=== PATIENT | female | born 1985 | race African-American/Black ===

== ENCOUNTER 2016-06-21 16:01 | Emergency (ER) | payer MEDICAID, OTHER ==
[~2016-06-21] VITALS: Ht 167.6 cm; Wt 61.5 kg
[~2016-06-21 16:01] MED LIST: SULF1SOL4 OD; Z.0.NO CURRENT MEDS
[2016-06-21 16:03] VITALS: BP 118/57; PULSE 85; RESP 15; TEMP 98; O2SAT 99
[2016-06-21] MEDS ORDERED: SODIUM CHLOR 0.9% 1000 ML INJ 1,000 ML IV ONE (17:34)
[2016-06-21] MEDS ORDERED: SODIUM CHLORIDE 0.9% FLUSH 10 ML FLUSH IVF PRN (17:45)
--- NOTE | 2016-06-21 17:49 | PD ---
HPI Chief Complaint: Related Problem Time Seen by Provider: 17:29 Travel History International Travel<30 days: No Contact w/Intl Traveler<30days: No Traveled to known affect area: No History of Present Illness HPI Patient is a 31-year-old female who is [id number], who presents to emergency room for evaluation of lower abdominal cramping and vaginal spotting. Patient reports that she is 13 weeks , reports that for the past 5 days, she has had increased abdominal cramping. Patient reports that for the past few days she has also had some bright red vaginal spotting. She did follow-up with her real estate loan officer 2-3 weeks ago, was told that "everything looked good." Patient denies any fevers or chills. Patient reports slight nausea with no vomiting. Patient with no other complaints. PFSH Past Medical History Medical History: Denies Significant Hx Tetanus Vaccination: > 5 Years Influenza Vaccination: No ?: LMP: 02/2016 : 4 Para: 2 Miscarriage: 0 : 1 Past Surgical History Surgical History: No Previous Surgery Social History Alcohol Use: No Tobacco Use: Yes (/2 PPD) Substance Use: No Allergies-Medications (Allergen,Severity, Reaction): Coded Allergies: No Known Allergies (Verified , 06/21/16) Reported Meds & Prescriptions Reported Meds & Active Scripts Active No Active Prescriptions or Reported Medications Review of Systems General / Constitutional: No: Fever Eyes: No: Visual changes HENT: No: Headaches Cardiovascular: No: Chest Pain or Discomfort Respiratory: No: Shortness of Breath Gastrointestinal: Positive: Nausea, No: Vomiting, Abdominal Pain Genitourinary: Positive: Vaginal Bleeding, No: Dysuria Musculoskeletal: No: Pain Skin: No Rash Neurologic: No: Weakness Psychiatric: No: Depression Endocrine: No: Polydipsia Hematologic/Lymphatic: No: Easy Bruising Physical Exam Narrative GENERAL: No acute distress, nontoxic SKIN: Focused skin assessment warm/dry. HEAD: Atraumatic. Normocephalic. EYES: Pupils equal and round. No scleral icterus. No injection or drainage. ENT: No nasal bleeding or discharge. Mucous membranes pink and moist. NECK: Trachea midline. No JVD. CARDIOVASCULAR: Regular rate and rhythm. No murmur appreciated. RESPIRATORY: No accessory muscle use. Clear to auscultation. Breath sounds equal bilaterally. GASTROINTESTINAL: Abdomen soft, non-tender, nondistended. PELVIC: exam performed with RN at bedside, no cmt or adnexal tenderness, mild white thick discharge MUSCULOSKELETAL: No obvious deformities. No clubbing. No cyanosis. No edema. NEUROLOGICAL: Awake and alert. Normal speech. PSYCHIATRIC: Appropriate mood and affect; insight and judgment normal. Data Data Last Documented VS Vital Signs Date Time Temp Pulse Resp B/P Pulse Ox O2 Delivery O2 Flow Rate FiO2 06/21/16 16:25 17 06/21/16 16:03 98.0 85 118/57 99 Orders Beta Hcg (Quant/Titer) (06/21/16 17:34) Complete Blood Count With Diff (06/21/16 17:34) Basic Metabolic Panel (Bmp) (06/21/16 17:34) Gc And Chlamydia Pcr (06/21/16 17:34) Type And Screen (06/21/16 17:34) Wet Prep Profile (06/21/16 17:34) Urinalysis - C+S If Indicated (06/21/16 17:34) Iv Access Insert/Monitor (06/21/16 17:34) Sodium Chloride 0.9% Flush (Ns Flush) (06/21/16 17:45) Sodium Chlor 0.9% 1000 Ml Inj (Ns 1000 M (06/21/16 17:34) Ed Urine Pregnancytest Poc (06/21/16 17:34) Labs Laboratory Tests Test 06/21/16 06/21/16 17:40 17:45 White Blood Count 7.6 TH/MM3 Red Blood Count 3.88 MIL/MM3 Hemoglobin 11.7 GM/DL Hematocrit 34.7 % Mean Corpuscular Volume 89.3 FL Mean Corpuscular Hemoglobin 30.0 PG Mean Corpuscular Hemoglobin 33.6 % Concent Red Cell Distribution Width 13.3 % Platelet Count 226 TH/MM3 Mean Platelet Volume 7.4 FL Neutrophils (%) (Auto) 56.8 % Lymphocytes (%) (Auto) 32.8 % Monocytes (%) (Auto) 9.3 % Eosinophils (%) (Auto) 0.8 % Basophils (%) (Auto) 0.3 % Neutrophils # (Auto) 4.3 TH/MM3 Lymphocytes # (Auto) 2.5 TH/MM3 Monocytes # (Auto) 0.7 TH/MM3 Eosinophils # (Auto) 0.1 TH/MM3 Basophils # (Auto) 0.0 TH/MM3 CBC Comment DIFF FINAL Differential Comment Clue Cells (Wet Prep) NONE SEEN Vaginal Trichomonas (Wet Prep) NONE SEEN Vaginal Yeast (Wet Prep) NONE SEEN Sodium Level 137 MEQ/L Potassium Level 3.6 MEQ/L Chloride Level 104 MEQ/L Carbon Dioxide Level 24.6 MEQ/L Anion Gap 8 MEQ/L Blood Urea Nitrogen 7 MG/DL Creatinine 0.76 MG/DL Estimat Glomerular Filtration 107 ML/MIN Rate Random Glucose 93 MG/DL Calcium Level 8.6 MG/DL Human Chorionic Gonadotropin, [address]34[address] MIU/ML Quant Blood Type AB POSITIVE Blood Bank Comment Urine Color YELLOW Urine Turbidity HAZY Urine pH 7.0 Urine Specific Minto 1.030 Urine Protein TRACE mg/dL Urine Glucose (UA) NEG mg/dL Urine Ketones TRACE mg/dL Urine Occult Blood NEG Urine Nitrite NEG Urine Bilirubin NEG Urine Urobilinogen 2.0 MG/DL Urine Leukocyte Esterase NEG Urine RBC 1 /hpf Urine WBC 2 /hpf Urine Squamous Epithelial 2 /hpf Cells Urine Amorphous Sediment FEW Urine Mucus FEW /lpf Microscopic Urinalysis Comment CULT NOT INDICATED MDM Medical Decision Making Medical Screen Exam Complete: Yes Emergency Medical Condition: Yes Interpretation(s) Vital Signs Date Time Temp Pulse Resp B/P Pulse Ox O2 Delivery O2 Flow Rate FiO2 06/21/16 16:25 17 06/21/16 16:03 98.0 85 15 118/57 99 Differential Diagnosis Spontaneous miscarriage versus threatened miscarriage versus inevitable miscarriage, early vaginal bleeding, ectopic , UTI, cervicitis Narrative Course Patient is a 31-year-old female who presents to emergency room with complaints of irregular vaginal spotting and abdominal cramping. Patient is 13 weeks , reports onset of symptoms the past 5 days. Patient here for evaluation of irregular vaginal spotting and cramping. Patient reports that she has had 2 full term babies born via vaginal delivery, reports that she has never had irregular spotting or cramping during these pregnancies. Reports no complications from her prior pregnancies. Patient admits to one elective , no history of miscarriages in the past. Labs as well as hCG Quant. Bedside US performed, patient does have positive FHT. CBC & BMP Diagram 06/21/16 17:40 Laboratory Tests Test 06/21/16 06/21/16 17:40 17:45 White Blood Count 7.6 TH/MM3 (4.0-11.0) Red Blood Count 3.88 MIL/MM3 (4.00-5.30) Hemoglobin 11.7 GM/DL (11.6-15.3) Hematocrit 34.7 % (35.0-46.0) Mean Corpuscular Volume 89.3 FL (80.0-100.0) Mean Corpuscular Hemoglobin 30.0 PG (27.0-34.0) Mean Corpuscular Hemoglobin 33.6 % Concent (32.0-36.0) Red Cell Distribution Width 13.3 % (11.6-17.2) Platelet Count 226 TH/MM3 (150-450) Mean Platelet Volume 7.4 FL (7.0-11.0) Neutrophils (%) (Auto) 56.8 % (16.0-70.0) Lymphocytes (%) (Auto) 32.8 % (9.0-44.0) Monocytes (%) (Auto) 9.3 % (0.0-8.0) Eosinophils (%) (Auto) 0.8 % (0.0-4.0) Basophils (%) (Auto) 0.3 % (0.0-2.0) Neutrophils # (Auto) 4.3 TH/MM3 (1.8-7.7) Lymphocytes # (Auto) 2.5 TH/MM3 (1.0-4.8) Monocytes # (Auto) 0.7 TH/MM3 (0-0.9) Eosinophils # (Auto) 0.1 TH/MM3 (0-0.4) Basophils # (Auto) 0.0 TH/MM3 (0-0.2) CBC Comment DIFF FINAL Differential Comment Clue Cells (Wet Prep) NONE SEEN (NONE) Vaginal Trichomonas (Wet Prep) NONE SEEN (NONE) Vaginal Yeast (Wet Prep) NONE SEEN (NONE) Sodium Level 137 MEQ/L (136-145) Potassium Level 3.6 MEQ/L (3.5-5.1) Chloride Level 104 MEQ/L (98-107) Carbon Dioxide Level 24.6 MEQ/L (21.0-32.0) Anion Gap 8 MEQ/L (5-15) Blood Urea Nitrogen 7 MG/DL (7-18) Creatinine 0.76 MG/DL (0.50-1.00) Estimat Glomerular Filtration 107 ML/MIN Rate (>89) Random Glucose 93 MG/DL (74-106) Calcium Level 8.6 MG/DL (8.5-10.1) Human Chorionic Gonadotropin, 70253 MIU/ML Quant (0-5) Blood Type AB POSITIVE Blood Bank Comment Urine Color YELLOW (YELLW/STRAW) Urine Turbidity HAZY (CLEAR) Urine pH 7.0 (5.0-8.5) Urine Specific Minto 1.030 (1.002-1.035) Urine Protein TRACE mg/dL (NEG-TRACE) Urine Glucose (UA) NEG mg/dL (NEG) Urine Ketones TRACE mg/dL (NEG) Urine Occult Blood NEG (NEG) Urine Nitrite NEG (NEG) Urine Bilirubin NEG (NEG) Urine Urobilinogen 2.0 MG/DL (LESS THAN 2.0) Urine Leukocyte Esterase NEG (NEG) Urine RBC 1 /hpf (0-3) Urine WBC 2 /hpf (0-5) Urine Squamous Epithelial 2 /hpf (0-5) Cells Urine Amorphous Sediment FEW Urine Mucus FEW /lpf (OCC) Microscopic Urinalysis Comment CULT NOT INDICATED hgb 11.7 hcg quant 79,074 blood type AB positive She feeling better at this time. I reviewed all labs and studies with patient in detail. Discussed with patient need to follow-up with TIN POT OPERATOR as soon as possible. Discussed that she will need to have pelvic rest until she is seen and cleared by her coil taper. Patient given instructions for threatened miscarriage. Patient will return to emergency room if symptoms return or persist or worsen. Patient thankful for care. Diagnosis Primary Impression: Threatened Patient Instructions: General Instructions Additional Instructions: Please provide patient with a copy of her lab work at discharge Please follow up with your TIN POT OPERATOR as soon as possible Pelvic rest until you're seen and cleared by your OB real estate loan officer Please follow-up with cultures from today Please return to ER if symptoms return or worsen Scripts No Active Prescriptions or Reported Meds Disposition: 01 DISCHARGE HOME Condition: Stable Rachel Sotelo DO Jun 21, 2016 17:49
[2016-06-21 18:25] LABS: BLOOD, URINE NEG (NEG); COMMENT (UR) CULT NOT INDICATED; CULTURE IF INDICATED CULT NOT INDICATED; GLUCOSE,URINE NEG (NEG); KETONE, URINE TRACE mg/dL (NEG); MUCUS URINE FEW /lpf (OCC); NITRITE,URINE NEG (NEG); SQUAMOUS EPITHELIAL CELL URINE 2 /hpf (0-5); URINE COLOR YELLOW (YELLW/STRAW)
[2016-06-21 18:25] LABS: AUTOMATED NEUTROPHIL # 4.3 TH/MM3 (1.8-7.7); BASOPHIL % 0.3 % (0.0-2.0); EOSINOPHIL # 0.1 TH/MM3 (0-0.4); EOSINOPHIL % 0.8 % (0.0-4.0); HEMATOCRIT 34.7 % (35.0-46.0); HEMO FLAGS DIFF FINAL; LYMPH % 32.8 % (9.0-44.0); LYMPHOCYTE # 2.5 TH/MM3 (1.0-4.8); MEAN CELL VOLUME 89.3 FL (80.0-100.0); MEAN CORPUSCULAR HGB CONC 33.6 % (32.0-36.0); MONO % 9.3 % (0.0-8.0); NEUT % 56.8 % (16.0-70.0); PLATELET COUNT 226 TH/MM3 (150-450); RED BLOOD COUNT 3.88 MIL/MM3 (4.00-5.30); RED CELL DISTRIBUTION WIDTH 13.3 % (11.6-17.2); WHITE BLOOD COUNT 7.6 TH/MM3 (4.0-11.0)
[2016-06-21 18:34] LABS: BICARBONATE 24.6 MEQ/L (21.0-32.0); POTASSIUM 3.6 MEQ/L (3.5-5.1)
[2016-06-21 22:31] LABS: CHLAMYDIA PCR NOT DETECTED (NOT DETECT); NEISSERIA PCR NOT DETECTED (NOT DETECT)
[2016-08-10] MEDS ORDERED: TERC.4%V VAGINAL (09:46)
== END 2016-06-21 19:45 | disposition home or self-care (01) ==
LOC: NEPD 16:01
DX: O20.0 Threatened abortion (principal); O26.851 Spotting complicating pregnancy, first trimester; R10.30 Lower abdominal pain, unspecified; F17.200 Nicotine dependence, unspecified, uncomplicated; Z3A.13 13 weeks gestation of pregnancy
CPT/HCPCS: 80048; 81001; 84702; 84703; 85025; 86850; 86900; 86901; 87210; 87491; 87591; 96360; 99284; J7030

== ENCOUNTER → 2016-07-07 | Outpatient (CLI) | payer OTHER ==
[~2016-07-07] MED LIST changes: -SULF1SOL4 OD; +TERC.4%V VAGINAL; -Z.0.NO CURRENT MEDS
== END ==
LOC: HPND 10:11
PROVIDERS: ATTEND Family Medicine
DX: O26.842 Uterine size-date discrepancy, second trimester (principal)
CPT/HCPCS: 76805

== ENCOUNTER → 2016-07-13 | Outpatient (CLI) | payer OTHER | LOC: HPND 07:29 | PROVIDERS: ATTEND Family Medicine | DX: O35.1XX0 Maternal care for (suspected) chromosomal abnormality in fetus, not applicable or unspecified (principal); Z72.0 Tobacco use; Z3A.00 Weeks of gestation of pregnancy not specified | CPT/HCPCS: 76811; 76817 ==

== ENCOUNTER → 2016-08-11 | Outpatient (CLI) | payer OTHER | LOC: HPND 08:53 | PROVIDERS: ATTEND Family Medicine | DX: O35.1XX0 Maternal care for (suspected) chromosomal abnormality in fetus, not applicable or unspecified (principal); O44.02 Complete placenta previa NOS or without hemorrhage, second trimester; O43.892 Other placental disorders, second trimester; Z3A.20 20 weeks gestation of pregnancy | CPT/HCPCS: 76816 ==

== ENCOUNTER → 2016-09-08 | Outpatient (CLI) | payer OTHER ==
[~2016-09-08] MED LIST changes: +DOXY10TA PO; +PYRI25TA2 PO
== END ==
LOC: HPND 08:28
PROVIDERS: ATTEND Family Medicine
DX: O35.8XX0 Maternal care for other (suspected) fetal abnormality and damage, not applicable or unspecified (principal)
CPT/HCPCS: 76816; 76825; 76827; 93325

== ENCOUNTER 2016-10-03 08:34 | Emergency (ER) | payer MEDICAID, OTHER ==
[~2016-10-03] VITALS: Ht 167.6 cm; Wt 68.5 kg
[~2016-10-03 08:34] MED LIST changes: +CLOTCRE TOPICAL
--- NOTE | 2016-10-03 09:06 | PD ---
HPI Chief Complaint Vaginal Bleeding Date Seen: Oct 03, 2016 Travel History International Travel<30 Days: No Contact w/Intl Traveler<30Days: No History of Present Illness HPI Ms. Murillo is a 31 y/o F presenting at 27/04 with vaginal bleeding. She states that around 0500 this morning after intercourse she began to have vaginal bleeding. She describes the bleeding as heavy, however it does not soak a pad and only covers her panty liner. She is without pain currently and previous US shows anterior placental placement. She denies any dizziness, headaches, or syncope. She endorses no family history of bleeding disorders. Otherwise she has no complaints and denies any fevers, chills, SOB, chest pain, NVD, ABD pain, or calf tenderness. She has recently been treated for a yeast infection with intravaginal terconazole, but states she has completed her medication. Her only complication during this has been gastroschisis of her found on US. 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 Prov:Nereyda Hernandez MD R2 09/28/16 Terconazole Vaginal Cream (Terazol 7 Vaginal Cream)0.4 % Cream1 Appl VAGINAL HS #45 GM Ref 0 1 applicatorful intravaginally x 7 nights Prov:Nereyda Hernandez MD R2 09/28/16 Pyridoxine 25 Mg Tab25 Mg PO Q8HR PRN (NAUSEA) #28 TAB Ref 0 Prov:Quynh Dubois MD R2 09/16/16 Doxylamine-Pyridoxine (Diclegis)10-10 Mg Tab2 Tab PO HS #28 TAB Prov:Quynh Dubois MD R2 09/16/16 Discontinued Scripts Terconazole Vaginal Cream 0.4 % Cream1 Appl VAGINAL HS #45 GM Ref 0 For seven days Prov:Nereyda Hernandez MD R2 09/28/16 Terconazole Vaginal Cream (Terazol 7 Vaginal Cream)0.4 % Cream1 Appl VAGINAL HS #45 GM Ref 0 1 applicatorful intravaginally x 7 nights Prov:Quynh Dubois MD R2 09/16/16 Review of Systems General / Constitutional: No: Fever Eyes: Visual changes (Intermittent spots) HENT: No: Headaches Cardiovascular: No: Chest Pain or Discomfort Respiratory: No: Cough, Short of Breath Gastrointestinal: No: Nausea, Vomiting, Diarrhea, Abdominal Pain Genitourinary: No: Dysuria Musculoskeletal: No: Weakness Skin: No Rash Neurologic: No: Weakness Psychiatric: No: Mood Disorder Physical Exam Narrative GENERAL: Well-nourished, well-developed patient. SKIN: Warm and dry. HEAD: Normocephalic and atraumatic. EYES: No scleral icterus. No injection or drainage. ENT: No nasal drainage noted. Mucous membranes pink. Airway patent. NECK: Supple, trachea midline. No JVD. CARDIOVASCULAR: Regular rate and rhythm without murmurs, gallops, or rubs. RESPIRATORY: Breath sounds equal bilaterally. No accessory muscle use. ABDOMEN/GI: Abdomen soft, non-tender, bowel sounds present, no rebound, no guarding Gravid to 28 weeks size GENITOURINARY: Speculum: Cervix visualized with blood clot in external os. No signs of infection or purulent material. External Genitalia: intact and normal in appearance Cervix: Posterior Dilatation: Closed Effacement: None Station: -3 Membranes: Intact Contractions: Every 8 minutes on monitor, patient does not feel contractions FHT's: Category: 1 Baseline: 150s Reactive: Positive Variability: Moderate Decels: None EXTREMITIES: No cyanosis or edema. BACK: Nontender without obvious deformity. No CVA tenderness. NEUROLOGICAL: Awake and alert. Motor and sensory grossly within normal limits. Five out of 5 muscle strength in all muscle groups. Normal speech. Data Data Vital Signs Reviewed: Yes [facility] Medical Record Reviewed: Yes Plan 31 y/o at 28/2 presenting with postcoital vaginal bleeding for the last 4 hours. 1. IUP at 28 weeks -Continue routine OB care -Category 1 tracing, contractions due likely to irritation from bleeding -Terbutaline SQ given for contractions -Encourage PO hydration 2. Postcoital Bleeding -Minimal vaginal bleeding on speculum exam -1L LR bolus -Encouraged PO hydration -Previous US shows anterior placental placement, no signs of previa Patient to be discharged home after her 1L LR bolus and pending clinical course s/p terbutaline. F/U with PCP. SDW: Dr. Carver, Dr. Burr Diagnosis Diagnosis: Primary Impression: 28 weeks gestation of Additional Impression: Postcoital bleeding Disposition: DISCHARGE HOME Condition: Good Db Tan MD R2 Oct 03, 2016 09:06
[2016-10-03] MEDS ORDERED: TERBUTALINE INJ 1 MG/ML AMP SQ ONE (09:15)
[2016-10-03] MEDS ORDERED: LACTATED RINGER'S 1000 ML INJ 1,000 ML IV ONE (09:15)
[2016-10-20] MEDS ORDERED: TERC.4%V VAGINAL (12:27)
[2016-11-19] MEDS ORDERED: FLUC150T PO (15:22)
== END 2016-10-03 10:31 | disposition home or self-care (01) ==
LOC: HOBED 08:34
DX: O46.93 Antepartum hemorrhage, unspecified, third trimester (principal); Z3A.28 28 weeks gestation of pregnancy
CPT/HCPCS: 96372; 99284; J3105; J7120

== ENCOUNTER → 2016-10-06 | Outpatient (CLI) | payer MEDICAID ==
[~2016-10-06] MED LIST changes: +ECON0.052 TOPICAL; +FLUC150T PO; +IBUP-232 PO; +OXYC1TAB63 PO
== END ==
LOC: HPND 08:28
PROVIDERS: ATTEND Family Medicine
DX: O35.8XX0 Maternal care for other (suspected) fetal abnormality and damage, not applicable or unspecified (principal)
CPT/HCPCS: 76816

== ENCOUNTER 2016-10-08 15:56 | Emergency (ER) | payer MEDICAID ==
[~2016-10-08 15:56] MED LIST changes: -ECON0.052 TOPICAL; -FLUC150T PO; -IBUP-232 PO; -OXYC1TAB63 PO
--- NOTE | 2016-10-08 17:25 | PD ---
HPI Chief Complaint Contractions Vaginal bleeding Date Seen: Oct 08, 2016 Time Seen: 17:00 (Anamaria Jameson MD R1) Travel History International Travel<30 Days: No Contact w/Intl Traveler<30Days: No Known Affected Area: No (Anamaria Jameson MD) History of Present Illness HPI Patient is a 31-year-old at 29 weeks who presents to OB triage complaining of contractions and vaginal bleeding. Patient reports contractions to be regular, every two minutes. Patient states that she felt contractions earlier but since arrival to triage contractions have let up. Patient reports minimal vaginal bleeding; she describes amount as a light day of a period. She denies leakage of fluid. Positive movement. Of note, patient was recently seen in OB triage and found to have contractions every 3 minutes. She was also complaining of heavier vaginal bleeding; described bleeding as filling up a pad with blood dripping into toilet. Patient was given LR and treated with terbutaline. Patient was later discharged from triage. Also, patient is seen by MFM every 4 weeks; fetus has been found to have gastroschisis. Patient will deliver at [facility] in [place]. Para: 2 : 3 (Anamaria Jameson MD R1) History Past Medical History Medical History: Denies Significant Hx (Anamaria Jameson MD) Obstetric History Obstetric History G1: 42 weeks; vaginal delivery; no complications during or delivery G2: 42 weeks; vaginal delivery; no complications during or delivery G3: current ; has received regular care with Dr. Dubois (Anamaria Jameson MD) Past Surgical History Surgical History: No Previous Surgery (Anamaria Jameson MD) Family History Family History: Negative (Anamaria Jameson MD) Social History Alcohol Use: No Tobacco Use: No Substance Abuse: No (Anamaria Jameson MD) Allergies-Medications (Allergen,Severity, Reaction): Coded Allergies: No Known Allergies (Verified , 10/03/16) Home Meds Active Scripts Clotrimazole-Betamethasone Topical 1-0.05% Cream1 Applic TOPICAL BID #45 GM Ref 0 APPLY EXTERNALLY ONLY. Prov:Anamaria Jameson MD 10/08/16 Terconazole Vaginal Cream (Terazol 7 Vaginal Cream)0.4 % Cream1 Appl VAGINAL HS #45 GM Ref 0 1 applicatorful intravaginally x 7 nights Prov:Nereyda Hernandez MD R2 09/28/16 Pyridoxine 25 Mg Tab25 Mg PO Q8HR PRN (NAUSEA) #28 TAB Ref 0 Prov:Quynh Dubois MD R2 09/16/16 Doxylamine-Pyridoxine (Diclegis)10-10 Mg Tab2 Tab PO HS #28 TAB Prov:Quynh Dubois MD R2 09/16/16 Discontinued Scripts Clotrimazole-Betamethasone Topical 1-0.05% Cream1 Applic TOPICAL BID #45 GM Ref 0 APPLY EXTERNALLY ONLY. Prov:Nereyda Hernandez MD R2 09/28/16 Review of Systems General / Constitutional: Weight Gain, No: Fever, Chills, Other Eyes: No: Diploplia, Blurred Vision, Visual changes, Pain, Photophobia HENT: No: Headaches, Vertigo, Lightheadedness Cardiovascular: No: Irregular Rhythm, Chest Pain or Discomfort, Palpitations, Tachycardia, Syncope, Varicosities, Edema, Cyanosis Respiratory: No: Cough, Short of Breath, Other Gastrointestinal: Abdominal Pain, No: Nausea, Vomiting, Diarrhea, Constipation Genitourinary: Vaginal Bleeding, No: Urgency, Frequency, Hematuria Musculoskeletal: No: Limited ROM, Weakness, Cramping, Edema, Pain Skin: No Rash, No Itching, No Dryness, No Lumps, No Change in Pigmentation, No Change in Nails, No Alopecia, No Lesions Neurologic: No: Weakness, Dizziness, Syncope, Focal Abnormalities, Coordination Problem, Headache, Slurred Speech, Seizures Psychiatric: No: Depression, Suicidal Ideations, Homicidal Ideation Endocrine: No: Heat Intolerance, Cold Intolerance, Polydipsia, Polyuria, Other (Anamaria Jameson MD R1) Physical Exam Blood pressure 123/65, heart rate 90, respiratory rate 20, temperature 98.1 Narrative GENERAL: Well-nourished, well-developed patient. SKIN: Warm and dry. HEAD: Normocephalic and atraumatic. EYES: No scleral icterus. No injection or drainage. ENT: No nasal drainage noted. Mucous membranes pink. Airway patent. NECK: Supple, trachea midline. No JVD. CARDIOVASCULAR: Regular rate and rhythm without murmurs, gallops, or rubs. RESPIRATORY: Breath sounds equal bilaterally. No accessory muscle use. ABDOMEN/GI: Abdomen soft, non-tender, bowel sounds present, no rebound, no guarding Gravid to 29 weeks size GENITOURINARY: External Genitalia: intact and normal in appearance Vaginal Canal: No erythema or source of bleeding identified; vaginal wall closing in during exam; white discharge noted. Dilatation: Closed Effacement: Thick Station: High Membranes: Intact Uterine Contractions: none FHT's: Category: 1 Baseline: 130 Reactive: + Variability: Moderate Decels: None EXTREMITIES: No cyanosis or edema. BACK: Nontender without obvious deformity. No CVA tenderness. NEUROLOGICAL: Awake and alert. Motor and sensory grossly within normal limits. Five out of 5 muscle strength in all muscle groups. Normal speech. (Anamaria Jameson MD R1) Data Data Vital Signs Reviewed: Yes (Anamaria Jameson MD R1) MDM Plan Patient is a 31-year-old at 29 weeks who presents to OB triage complaining of contractions and vaginal bleeding. 1. Pre-Term Labor * PO Hydration * Continue to monitor for FHR and contractions * If contractions noted, start LR IV, terbutaline and consider Fentanyl. 2. Vaginal Bleeding * Most likely postcoital bleeding - bleeding improving since Tuesday per patient. * Speculum exam to locate source of bleeding - no bleeding detected; no source of bleeding detected. 3. Vaginal Infection * Suspected yeast infection based on appearance. * Speculum exam. * Ordered G+C, wet prep and ONUR - pending. * Treat if evidence of infection. Seen and discussed with Dr. Daniels and Dr. Pimentel. (Anamaria Jameson MD R1) Attending Attestation Patient seen, examined, and discussed with resident team. I agree with assessment and management as documented and discussed with me. Pt presented initially with contractions, which pt reports resolved upon arrival. Exam reassuring, as cervix closed, thick, and high. No contractions seen on monitor; Category 1 strip. Vaginal discharge seen - suspect yeast based on exam and ONUR. Rx for clotrimazole. Discharge home with new rx as above. (Michelle Daniels MD) Diagnosis Diagnosis: Primary Impression: contractions Additional Impressions: Postcoital bleeding 29 weeks gestation of Disposition: DISCHARGE HOME Condition: Good Scripts Clotrimazole-Betamethasone Topical 1-0.05% Cream1 Applic TOPICAL BID #45 GM Ref 0 APPLY EXTERNALLY ONLY. Prov:Anamaria Jameson MD R1 10/08/16 Anamaria Jameson MD R1 Oct 08, 2016 17:25 Michelle Daniels MD Oct 11, 2016 08:38
[2016-10-08] MEDS ORDERED: ECON0.052 TOPICAL (18:30)
[2016-10-08] MEDS ORDERED: CLOTCRE TOPICAL (19:08)
[2016-10-08 19:23] LABS: CHLAMYDIA PCR NOT DETECTED (NOT DETECT); NEISSERIA PCR NOT DETECTED (NOT DETECT)
[2016-10-20] MEDS ORDERED: TERC.4%V VAGINAL (12:27)
[2016-11-19] MEDS ORDERED: FLUC150T PO (15:22)
== END 2016-10-08 19:23 | disposition home or self-care (01) ==
LOC: HOBED 15:56
DX: O47.03 False labor before 37 completed weeks of gestation, third trimester (principal); O46.8X3 Other antepartum hemorrhage, third trimester; Z3A.29 29 weeks gestation of pregnancy
CPT/HCPCS: 84112; 87210; 87220; 87491; 87591; 99284

== ENCOUNTER → 2016-11-03 | Outpatient (CLI) | payer MEDICAID ==
[~2016-11-03] MED LIST changes: +FLUC150T PO; +IBUP-232 PO; +OXYC1TAB63 PO
--- NOTE | 2016-11-03 21:47 | HHI.FPPN ---
Addendum to progress note ADDENDUM Reason for addendum: Additonal documentation Additional information Consult for Reyna Murillo MR [id number] Maternal Hx: 31 y/o BF, 3 P2 at 30 weeks gestation. 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 Has been following with OB Diagnostics and MFM at [place]. Already had a consult with Peds Surgery at [facility] to discuss possible closure procedures. Is awaiting referral to [facility] to be arranged. Other than a paternal aunt with T21 family history is negative for genetic or inherited conditions. Previous children are described as healthy. She smokes less than 1/2 pack of cigarettes daily, no alcohol use, per MFM note she uses occasional Marijuana. Maternal Meds: vitamins Maternal Management: Following growth, [facility] referral pending, already seen by Peds Surgery at [place]. She is to start weekly testing at 32 weeks. Plan is for delivery at [place] unless emergent conditions prompt delivery at [place]. Discussion: Nurse practitioner met with mother regarding Gastroschisis. We discussed the defect itself, possible closure procedures, need for shelter IV nutrition, most likely with PICC line. Mom was encouraged to pump/breast feed as these babies due best with breast milk. Discussed the possible feeding intolerance/ issues that can result from Gastroschisis. Discussed length of hospital stay for different closure procedures, and the possibility of prolonged hospitalization due to feeding and nutritional challenges. Discussed location of [facility] and the Level IV NICU. Discussed services such as , Handbag Frames Inspector, and [facility] (including background screening and small fee to stay). It was explained to mother what to expect from the time of delivery to admission to the NICU - including the size of NICU team and use of saline gauze/bowel bag. Reviewed need for Replogle Tube for gastric decompression and need for immediate IV access. Discussed visitation in NICU. Mother intends to breast feed and will begin pumping shortly after delivery. Mother is not opposed to providing formula should the need arise, but understands that breast milk is preferred. It was explained to mother that the may attempt to breast feed once clinically stable. Mother verbalized understanding of information provided and asked appropriate questions. Greater than 50% of the consultation time was spent face to face with the patient. We will continue to follow progress with MFM and OB Diagnostics. Will be glad to meet with mother at any time to address her questions or concerns. BUCKY JUAN Nov 03, 2016 21:47
== END ==
LOC: HPND 08:14
PROVIDERS: ATTEND Family Medicine
DX: O35.1XX0 Maternal care for (suspected) chromosomal abnormality in fetus, not applicable or unspecified (principal); O43.192 Other malformation of placenta, second trimester; Z3A.00 Weeks of gestation of pregnancy not specified
CPT/HCPCS: 76816; 76818

== ENCOUNTER 2016-11-26 20:53 | Inpatient (IN) | payer MEDICAID ==
[2016-11-26] VITALS (21 sets, daily range): BP systolic 87–150; BP diastolic 60–99; PULSE 69–112; RESP 18; TEMP 97.5
[~2016-11-26 20:53] MED LIST changes: +DIPHTH/TETANUS/ACEL PERTUSSIS (BOOSTER) 0.5 ML VIAL/PFS IM ONE; -IBUP-232 PO; +MEASLES, MUMPS, RUBELLA VACCINE 0.5 ML VIAL SQ ONE; -OXYC1TAB63 PO
[2016-11-26] MEDS ORDERED: TERBUTALINE INJ 1 MG/ML AMP ONE (21:25)
[2016-11-26] MEDS ORDERED: LACTATED RINGER'S 1000 ML INJ 1,000 ML IV SCH (21:28)
[2016-11-26] MEDS ORDERED: LACTATED RINGER'S 1000 ML INJ 1,000 ML IV PRN (21:28)
--- NOTE | 2016-11-26 21:28 | HHI.HP ---
HPI Chief Complaint Water broke and eron Date Seen: Nov 26, 2016 Time Seen: 21:22 Travel History International Travel<30 Days: No Contact w/Intl Traveler<30Days: No Known Affected Area: No History of Present Illness HPI Patient is 31-year-old black female 36 weeks [facility] presents with spontaneous ruptured membranes in active labor, she 6 cm 90 % and 0 station, she baby has known gastroschisis and a plan to deliver and [place] but she is in labor and came here, heart rate tracing is reactive and she is eron regularly Weeks Gestation: 36 Para: 2 : 3 History Obstetric History Obstetric History 2 vaginal deliveries And this fetus has gastroschisis Social History Alcohol Use: No Tobacco Use: No Substance Abuse: No Allergies-Medications (Allergen,Severity, Reaction): Coded Allergies: No Known Allergies (Verified , 11/19/16) Home Meds Active Scripts Fluconazole (Fluconazole) 150 Mg Tab, 150 MG PO ONCE for Infection, #1 TAB 0 Refills Prov:Quynh Dubois MD R2 11/19/16 Terconazole Vaginal Cream (Terazol 7 Vaginal Cream) 0.4 % Cream, 1 APPL VAGINAL HS for Fungal Infection, #45 GM 0 Refills 1 applicatorful intravaginally x 7 nights Prov:Quynh Dubois MD R2 10/20/16 Clotrimazole-Betamethasone Topical (Clotrimazole-Betamethasone Topical) 1-0.05% Cream, 1 APPLIC TOPICAL BID for Fungal Infection, #45 GM 0 Refills APPLY EXTERNALLY ONLY. Prov:nAamaria Jameson MD R1 10/08/16 Pyridoxine (Pyridoxine) 25 Mg Tab, 25 MG PO Q8HR Y for NAUSEA, #28 TAB 0 Refills Prov:Quynh Dubois MD R2 09/16/16 Doxylamine-Pyridoxine (Diclegis) 10-10 Mg Tab, 2 TAB PO HS, #28 TAB Prov:Quynh Dubois MD R2 09/16/16 Review of Systems General / Constitutional: No: Fever, Weight Gain, Chills, Other Eyes: No: Diploplia, Blurred Vision, Visual changes, Pain, Photophobia HENT: No: Headaches, Vertigo, Lightheadedness Cardiovascular: No: Irregular Rhythm, Chest Pain or Discomfort, Palpitations, Tachycardia, Syncope, Varicosities, Edema, Cyanosis Respiratory: No: Cough, Short of Breath, Other Gastrointestinal: Abdominal Pain, No: Nausea, Vomiting, Diarrhea Genitourinary: No: Decreased Urinary Output, Oliguria Musculoskeletal: No: Limited ROM, Weakness, Cramping, Edema, Pain Skin: No Rash, No Itching, No Dryness, No Lumps, No Change in Pigmentation, No Change in Nails, No Alopecia, No Lesions Neurologic: No: Weakness, Dizziness, Syncope, Focal Abnormalities, Coordination Problem, Headache, Slurred Speech, Seizures Psychiatric: No: Depression, Suicidal Ideations, Homicidal Ideation Endocrine: No: Heat Intolerance, Cold Intolerance, Polydipsia, Polyuria, Other Physical Exam Narrative GENERAL: Well-nourished, well-developed patient. SKIN: Warm and dry. HEAD: Normocephalic and atraumatic. EYES: No scleral icterus. No injection or drainage. ENT: No nasal drainage noted. Mucous membranes pink. Airway patent. NECK: Supple, trachea midline. No JVD. CARDIOVASCULAR: Regular rate and rhythm without murmurs, gallops, or rubs. RESPIRATORY: Breath sounds equal bilaterally. No accessory muscle use. BREASTS: Bilateral exam showed no masses , no retractions, no nipple discharge. ABDOMEN/GI: Abdomen soft, non-tender, bowel sounds present, no rebound, no guarding Gravid to [36-] weeks size Fundal Height: [36-] GENITOURINARY: External Genitalia: intact and normal in appearance BUS glands: [-] Cervix: [-] Dilatation: [6-] Effacement: [-90] Station: [-0] Presentation: [vtx-] Membranes: [ ruptured] Uterine Contractions: [-reg] FHT's: Category: [1-] Baseline: [-133] Reactive: [-yes] Variability: [mod-] Decels: [none-] EXTREMITIES: No cyanosis or edema. BACK: Nontender without obvious deformity. No CVA tenderness. NEUROLOGICAL: Awake and alert. Motor and sensory grossly within normal limits. Five out of 5 muscle strength in all muscle groups. Normal speech. Caprini VTE Risk Assessment Caprini VTE Risk Assessment: No/Low Risk (score <= 1) Caprini Risk Assessment Model Point Value = 1 Point Value = 2 Point Value = 3 Point Value = 5 Age 41-60 Minor surgery BMI > 25 kg/m2 Swollen legs Varicose veins or History of unexplained or recurrent spontaneous Oral contraceptives or hormone replacement Sepsis (< 1 month) Serious lung disease, including pneumonia (< 1 month) Abnormal pulmonary function Acute myocardial infarction Congestive heart failure (< 1 month) History of inflammatory bowel disease Medical patient at bed rest Age 61-74 Arthroscopic surgery Major open surgery (> 45 min) Laparoscopic surgery (> 45 min) Malignancy Confined to bed (> 72 hours) Immobilizing plaster cast Central venous access Age >= 75 History of VTE Family history of VTE Factor V Leiden Prothrombin [id number] Lupus anticoagulant Anticardiolipin antibodies Elevated serum homocysteine Heparin-induced thrombocytopenia Other congenital or acquired thrombophilia Stroke (< 1 month) Elective arthroplasty Hip, pelvis, or leg fracture Acute spinal cord injury (< 1 month) Prophylaxis Regimen Total Risk Factor Score Risk Level Prophylaxis Regimen 0-1 Low Early ambulation 2 Moderate Order ONE of the following: *Sequential Compression Device (SCD) *Heparin 5000 units SQ BID 3-4 Higher Order ONE of the following medications: *Heparin 5000 units SQ TID *Enoxaparin/Lovenox 40 mg SQ daily (WT < 150 kg, CrCl > 30 mL/min) *Enoxaparin/Lovenox 30 mg SQ daily (WT < 150 kg, CrCl > 10-29 mL/min) *Enoxaparin/Lovenox 30 mg SQ BID (WT < 150 kg, CrCl > 30 mL/min) AND/OR *Sequential Compression Device (SCD) 5 or more Highest Order ONE of the following medications: *Heparin 5000 units SQ TID (Preferred with Epidurals) *Enoxaparin/Lovenox 40 mg SQ daily (WT < 150 kg, CrCl > 30 mL/min) *Enoxaparin/Lovenox 30 mg SQ daily (WT < 150 kg, CrCl > 10-29 mL/min) *Enoxaparin/Lovenox 30 mg SQ BID (WT < 150 kg, CrCl > 30 mL/min) AND *Sequential Compression Device (SCD) Data Data Orders Orders Ob (2e) Additional Admit Info (11/26/16 21:17) Complete Blood Count With Diff (11/26/16 21:18) Type And Screen (11/26/16 21:18) Assessment/Plan Assessment and Plan Patient is 31-year-old black female 36 weeks in active labor with spontaneous rupture membranes with the baby has gastroschisis. The plan to deliver and we [facility] however started labor will deliver here and then the baby will be transferred to heart rate tracing is reactive she is eron she gross ruptured membranes. Cervix 6 cm 90% and 0 station Impression is active labor spontaneous membranes at 36 weeks patient with fetus is gastroschisis Plan is to admit and anticipate vaginal delivery with transfer of baby to [facility] Larry Carver II, MD Nov 26, 2016 21:28
[2016-11-26 21:30] LABS: AUTOMATED NEUTROPHIL # 4.3 TH/MM3 (1.8-7.7); BASOPHIL % 0.5 % (0.0-2.0); EOSINOPHIL # 0.1 TH/MM3 (0-0.4); EOSINOPHIL % 0.7 % (0.0-4.0); HEMATOCRIT 33.6 % (35.0-46.0); HEMO FLAGS DIFF FINAL; LYMPH % 34.9 % (9.0-44.0); LYMPHOCYTE # 2.8 TH/MM3 (1.0-4.8); MEAN CELL VOLUME 75.2 FL (80.0-100.0); MONO % 10.4 % (0.0-8.0); NEUT % 53.5 % (16.0-70.0); PLATELET COUNT 293 TH/MM3 (150-450); RED BLOOD COUNT 4.47 MIL/MM3 (4.00-5.30); RED CELL DISTRIBUTION WIDTH 16.4 % (11.6-17.2); WHITE BLOOD COUNT 8.1 TH/MM3 (4.0-11.0)
[2016-11-26] MEDS ORDERED: MINERAL OIL 10 ML VIAL TOPICAL PRN (21:30)
[2016-11-26] MEDS ORDERED: LIDOCAINE HCL 1% 50 ML VIAL I-DERMAL PRN (21:30)
[2016-11-26] MEDS ORDERED: PENICILLIN G POTASSIUM INJ 5,000,000 UNITS in SODIUM CHLORIDE 0.9% INJ 100 ML IV ONE (21:30)
[2016-11-26] MEDS ORDERED: CITRIC ACID-SODIUM CITRATE LIQ 30 ML UDC PO SCH (21:30)
[2016-11-26] MEDS ORDERED: SODIUM CHLORID 0.9% 500 ML INJ 500 ML IV PRN (21:30)
[2016-11-26] MEDS ORDERED: OXYTOCIN 30 UNITS-500ML PREMIX 500 ML IV ONE (21:30)
[2016-11-26] MEDS ORDERED: LIDOCAINE HCL 1% 50 ML VIAL INFIL PRN (21:30)
[2016-11-26] MEDS ORDERED: fentaNYL 2MCG-BUPIV 0.125% INJ 100 ML ONE (21:39)
[2016-11-26] MEDS ORDERED: SODIUM CHLOR 0.9% 1000 ML INJ 1,000 ML IV PRN (21:48)
[2016-11-26 22:31] LABS: BACTERIA, URINE RARE /hpf; BLOOD, URINE TRACE (NEG); COMMENT (UR) CULT NOT INDICATED; CULTURE IF INDICATED CULT NOT INDICATED; GLUCOSE,URINE NEG (NEG); KETONE, URINE NEG (NEG); NITRITE,URINE NEG (NEG); PH, URINE 7.5 (5.0-8.5); SQUAMOUS EPITHELIAL CELL URINE <1 /hpf (0-5); URINE COLOR LIGHT-YELLOW (YELLW/STRAW)
--- NOTE | 2016-11-26 22:58 | PD.OB.DELI ---
Weeks gestation: 36 Gest age assessed date: Nov 26, 2016 Gest age assessed time: 21:12 Pt started active labor?: Yes Active labor start date: Nov 26, 2016 Medical induction of labor?: No Artificial rupture of membrane: No Anesthesia: Epidural Episiotomy: Midline Vaginal Delivery: Normal Presentation: Occiput anterior Nuchal Cord: x1 Delayed cord clamping (45 sec): Yes : Male Delivery date: Nov 26, 2016 Delivery time: 22:25 One Minute : 6 Five Minute : 8 Weight: 2860 Placenta: Spontaneous delivery, Intact, 3 vessel cord Laceration: Episiotomy, 2 deg Repair: Chromic running Additional Information Spontaneous vaginal delivery at 36/0 weeks gestation. Male with gastroschisis. Midline episiotomy performed by Dr. Carver and repaired by Dr. Duobis under Dr. Carver's supervision. Intact placenta spontaneously delivered, velamentous insertion noted, sent to pathology. Quynh Dubois MD R2 Nov 26, 2016 22:58
[2016-11-26] MEDS ORDERED: SODIUM CHLORIDE 0.9% FLUSH 10 ML FLUSH IV FLUSH PRN (23:00)
[2016-11-26] MEDS ORDERED: ACETAMINOPHEN 325 MG TAB PO PRN (23:00)
[2016-11-26] MEDS ORDERED: ONDANSETRON ODT 4 MG TAB PO PRN (23:00)
[2016-11-26] MEDS ORDERED: OXYTOCIN 30 UNITS-500ML PREMIX 500 ML IV SCH (23:00)
[2016-11-26] MEDS ORDERED: oxyCODONE/ACETAMINOPHEN 5 MG/325 MG TAB PO PRN (23:00)
[2016-11-26] MEDS ORDERED: ZOLPIDEM TARTRATE 5 MG TAB PO PRN (23:00)
[2016-11-26] MEDS ORDERED: DOCUSATE SODIUM 50 MG/SENNA 8.6 MG TAB PO PRN (23:00)
[2016-11-26] MEDS ORDERED: ALUMINUM/MAGNESIUM/SIMETH 30 ML CUP PO PRN (23:00)
[2016-11-26 23:29] LABS: BLOOD GAS BASE EXCESS -0.9 mmol/L (-2-2); BLOOD GAS O2 HGB SATURATION 27 % (90-100); CORD BLOOD GAS HCO3 25 mmol/L (21-29); CORD BLOOD GAS PCO2 56 mmHG (34-78); CORD BLOOD GAS PH 7.27 (7.14-7.42); CORD BLOOD GAS PO2 19 mmHG (3.0-40.0); DRAW SITE CORD BLOOD; STAT YES
[2016-11-27 00:01] VITALS: RESP 16
[2016-11-27 00:37] VITALS: BP 123/45; PULSE 76
[2016-11-27 00:50] VITALS: RESP 18; TEMP 97.8
[2016-11-27] MEDS ORDERED: PENICILLIN G POTASSIUM INJ 2,500,000 UNITS in SODIUM CHLORIDE 0.9% INJ 100 ML IV SCH (01:00)
[2016-11-27 01:25] VITALS: BP 113/72; PULSE 79
[2016-11-27] MEDS ORDERED: NO SYSTEM NARCOTICS PRN (02:00)
[2016-11-27] MEDS ORDERED: DO NOT ADMINISTER ANTICOAGULANTS PRN (02:00)
[2016-11-27] MEDS ORDERED: fentaNYL 2MCG-BUPIV 0.125% 100 ML EPIDURAL SCH (02:00)
[2016-11-27] MEDS ORDERED: ePHEDrine/NS 25 MG/5 ML SYR IV PUSH PRN (02:00)
[2016-11-27 02:20] VITALS: BP 99/66; PULSE 66; RESP 18; TEMP 98.4
[2016-11-27] MEDS: IBUPROFEN 600 MG TAB PO PRN ×2 (07:47→13:44)
[2016-11-27] MEDS: BENZOCAINE 20% TOPICAL SPRAY 60 ML CAN TOPICAL PRN ×2 (07:51→15:37)
[2016-11-27] MEDS: WITCH HAZEL 50%/GLYCERIN 12.5% 40 PAD JAR TOPICAL PRN ×2 (07:52→15:36)
[2016-11-27] MEDS: oxyCODONE/ACETAMINOPHEN 5 MG/325 MG TAB PO PRN ×2 (07:53→13:44)
[2016-11-27 08:25] VITALS: BP 114/55; PULSE 62; RESP 18; TEMP 97.9
[2016-11-27] MEDS ORDERED: SODIUM CHLORIDE 0.9% FLUSH 10 ML FLUSH IV FLUSH SCH (09:00)
[2016-11-27] MEDS ORDERED: OXYC1TAB63 PO (10:39)
[2016-11-27] MEDS ORDERED: IBUP-232 PO (10:39)
--- NOTE | 2016-11-27 10:40 | HHI.DCPOC ---
Discharge Care Plan Diagnosis: (1) Normal vaginal delivery (2) Gastroschisis of fetus in gomez , antepartum Report Symptoms to Your Doctor -Temperature above 100.5 degrees -Redness, of incision or excessive or foul smelling drainage -Unusual pain or calf pain -Increased vaginal bleeding -Painful or difficulty urinating -Feelings of extreme sadness or anxiety after 2 weeks Goals to Promote Your Health * To prevent worsening of your condition and complications * To maintain your health at the optimal level Directions to Meet Your Goals Take your medications as prescribed Follow your dietary instruction Follow activity as directed Ensure plenty of rest for recovery Drink fluids for hydration Keep your appointments as scheduled Take your immunizations and boosters as scheduled If your symptoms worsen call your PCP, if no PCP go to Urgent Care Center or Emergency Room Smoking is Dangerous to Your Health. Avoid second hand smoke Call the 24-hour crisis hotline for domestic abuse at Irwin Hunt MD R2 Nov 27, 2016 10:40
--- NOTE | 2016-11-27 15:08 | HHI.OB ---
Subjective Remarks 31 year old female s/p at 36 wks gestation, PPD 1. AFVSS. Patient reports she is feeling well. Bleeding is decreasing and pain is well- controlled. Her baby had gastroschisis during and was transferred to Hospital in [place]. Ambulating without difficulties. She is tolerating a diet without nausea or vomiting. She has not had a bowel movement. She has passed gas. Denies chest pain, dysuria, shortness of breath, or calf pain. Objective Vitals/I&O Vital Signs Date Time Temp Pulse Resp B/P (MAP) Pulse Ox O2 Delivery O2 Flow Rate FiO2 11/27/16 08:25 97.9 62 18 114/55 (74) 11/27/16 02:20 98.4 66 18 99/66 (77) 11/27/16 01:25 79 113/72 (86) 11/27/16 00:50 97.8 18 11/27/16 00:37 76 123/45 (71) 11/27/16 00:01 16 11/26/16 23:58 85 97/66 (76) 11/26/16 23:32 18 11/26/16 23:16 86 108/67 (81) 11/26/16 23:15 97.5 11/26/16 23:00 87 103/64 (77) 11/26/16 22:52 100 87/76 (80) 11/26/16 22:52 18 11/26/16 22:45 78 110/85 (93) 11/26/16 22:40 72 118/65 (82) 11/26/16 22:36 69 112/65 (81) 11/26/16 22:31 77 127/60 (82) 11/26/16 22:25 112 119/84 (96) 11/26/16 22:21 94 116/68 (84) 11/26/16 22:16 150/90 (110) 11/26/16 22:10 87 120/78 (92) 11/26/16 22:06 87 110/67 (81) 11/26/16 22:00 83 119/67 (84) 11/26/16 21:57 86 119/78 (92) 11/26/16 21:52 18 11/26/16 21:48 87 116/99 (105) 11/26/16 21:46 91 132/84 (100) 11/26/16 21:38 92 99/75 (83) Objective Remarks GENERAL: Well-nourished, well-developed patient. CARDIOVASCULAR: Regular rate and rhythm without murmurs, gallops, or rubs. RESPIRATORY: Breath sounds equal bilaterally. No accessory muscle use. ABDOMEN/GI: Abdomen soft, non-tender. Fundus: Firm, non-tender at umbilicus. GENITOURINARY: Light to moderate bleeding. EXTREMITIES: No cyanosis or edema, non-tender, without signs of DVT. Medications and IVs Current Medications Medications (Trade) Dose Ordered Sig/Susi Route Start Time Stop Time Status Last Admin (NS Flush) 2 ml BID IV FLUSH 11/27/16 09:00 (NS Flush) 2 ml UNSCH PRN IV FLUSH 11/26/16 23:00 (Tylenol) 650 mg Q4H PRN PO 11/26/16 23:00 (Motrin) 600 mg Q6H PRN PO 11/26/16 23:00 11/27/16 13:44 (Percocet 5-325 Mg) 1 tab Q4H PRN PO 11/26/16 23:00 (Percocet 5-325 Mg) 2 tab Q4H PRN PO 11/26/16 23:00 11/27/16 13:44 (Americaine 20% Top Spr) 1 spray Q4H PRN TOPICAL 11/26/16 23:00 11/27/16 07:51 (Tucks Pads) 1 applic QID PRN TOPICAL 11/26/16 23:00 11/27/16 07:52 (Analilia-Colace) 2 tab Q12H PRN PO 11/26/16 23:00 11/27/16 07:52 (Ambien) 5 mg HS PRN PO 11/26/16 23:00 (Mag-Al Plus Susp Liq) 15 ml Q8H PRN PO 11/26/16 23:00 (Zofran Odt) 4 mg Q6H PRN PO 11/26/16 23:00 Miscellaneous Information No systemic narcotics to be given except... UNSCH PRN .XX 11/27/16 02:00 11/28/16 01:59 Miscellaneous Information DO NOT ADMINISTER ANY ANTICOAGUL... UNSCH PRN .XX 11/27/16 02:00 11/28/16 01:59 Fentanyl/ Bupivacaine HCl 100 ml @ 0 mls/hr TITRATE EPIDURAL 11/27/16 02:00 (ePHEDrine/NS 25 MG/5 ML SYR) 10 mg UNSCH PRN IV PUSH 11/27/16 02:00 11/28/16 01:59 Assessment/Plan Assessment and Plan 31 yo female s/p , PPD 1 - AFVSS - Continue routine care - Motrin and Percocet PRN pain - Encourage OOB - Pelvic rest x 6 wks - Contraception: Undecided, to discuss with Dr. Dubois at visit - Discharge home today Irwin Hunt MD R2 Nov 27, 2016 15:08
[2016-12-02 08:40] LABS: BATH SALTS (MDPV) UR NEG (NEG); ECSTASY (MDMA) UR NEG (NEG); GABAPENTIN UR NEG (NEG); HEROIN (6-ACETYLMORPHINE) UR NEG (NEG); HYDROMORPHONE U NEG (NEG); K2 SPICE UR NEG (NEG); OBMETHADONE UR NEG (NEG); PHENCYCLIDINE URINE NEG (NEG)
== END 2016-11-27 16:03 | disposition home or self-care (01) | DRG 989 ==
LOC: HOBED 20:53 → H2EB 21:20 → H2EA 21:22 → H1EA 11-27 01:30
PROVIDERS: ADMIT Obstetrics & Gynecology Maternal & Fetal Medicine; ATTEND Obstetrics & Gynecology Maternal & Fetal Medicine
PROC: 0W8NXZZ Division of Female Perineum, External Approach (ICD-10-PCS; principal; 2016-11-26)
PROC: 0KQM0ZZ Repair Perineum Muscle, Open Approach (ICD-10-PCS; 2016-11-26)
PROC: 10E0XZZ Delivery of Products of Conception, External Approach (ICD-10-PCS; 2016-11-26)
DX: Q79.3 Gastroschisis (principal); O69.81X0 Labor and delivery complicated by cord around neck, without compression, not applicable or unspecified; O70.1 Second degree perineal laceration during delivery; Z3A.36 36 weeks gestation of pregnancy; Z37.0 Single live birth
CPT/HCPCS: 76818; 80307; 81001; 82805; 84112; 85025; 86077; 86850; 86870; 86900; 86901; 86922; 88307; 90715; 99285; G0481; J3105